=== PATIENT | female | born 2000 | race Caucasian/White ===

== ENCOUNTER 2022-02-18 00:26 | Emergency (ER) | payer MEDICAID, SELFPAY ==
[2022-02-18 00:27] VITALS: BP 119/67; PULSE 90; RESP 18; TEMP 37.1; O2SAT 96; BMI 34.2
--- NOTE | 2022-02-18 00:40 | EDS_ITS ---
HPI HPI - GI History of Present Illness Chief Complaint: Abd Pain Informant: patient and family Narrative Narrative: Patient presents with abdominal pain now with nausea vomiting and some mild diarrhea. No blood in the vomitus or diarrhea that was seen. She states she started approximately 24 hours ago with abdominal pain. She works night and she is not exactly sure when it started. She had eaten a hot pocket prior to this. The pain has been in the right upper quadrant and has stayed there. She did sleep after work. Today she got up had a peanut butter sandwich. After that she developed some nausea and vomiting. She has vomited about 3 times. She also had some soft bowel movements. No fevers or chills. She still has pain in the right upper quadrant. No chest pain or trouble breathing. No urinary symptoms. Last menstrual cycle was in December but she had been on one control, stopped it, and then restarted another 1 about a month ago. Patient also does report a history of ulcerative colitis. But she was diagnosed by scope in 2019. She was put on some medication but was overdosed on it. She has been off meds since. She does not see anyone for this. She states her ulcerative colitis pain is normally lower abdominal cramping. It sounds like she has never had bloody stools. No surgeries at all in the abdomen. Nothing consistently makes the symptoms better or worse but it does seem like they might be exacerbated with trying to take food or water. There is also a prominent family history of cholecystectomy at a younger age. Her mother had gallbladder out approximately is a heath in high school. PFSH PFS Medical History no medical history Home Medications hydrocodone-acetaminophen 5-325mg 5mg-325mg 1 tab PO Q6H PRN pain 3 days #10 tabs 02/18/22 [Rx Last Taken Unknown] levofloxacin 250 mg tablet 250 mg PO DAILY #5 tabs 02/18/22 [Rx Last Taken Unknown] ondansetron 4 mg disintegrating tablet 4 mg PO Q8H PRN nausea and vomiting #10 tabs 02/18/22 [Rx Last Taken Unknown] sulfasalazine 500 mg tablet,delayed release 1 g PO TID #90 tabs 02/18/22 [Rx Last Taken Unknown] Allergy/AdvReac Type Severity Reaction Status Date / Time amoxicillin AdvReac Other Verified 02/18/22 00:27 Surgical History no surgical history Social History Smoking Status: Never smoker ROS ROS ED Constitutional Constitutional ED: Denies chills or fever(s) ENT ENT ED: Denies rhinorrhea Cardiovascular Cardiovascular: Denies chest pain, palpitations or racing heartbeat Respiratory/Chest Respiratory/Chest: Denies cough, dyspnea or sputum Gastrointestinal Gastrointestinal: Reports abdominal pain, diarrhea and vomiting; Denies constipation or nausea Genitourinary Genitourinary ED: Denies dysuria, hematuria or urinary frequency Musculoskeletal Musculoskeletal: Denies arthralgias or myalgias Integumentary Denies rash Neurologic Neurologic: Denies headache(s) Endocrine Endocrinology: Denies polydipsia or polyuria Hematologic/Lymphatic Hematologic/Lymphatic: Denies easy bleeding or easy bruising Allergic/Immunologic Allergic/Immunologic ED: Denies urticaria EXAM Physical Exam Const Vital Signs: 02/18/22 00:27 Temperature 98.8 F Temperature Source Oral Pulse Rate 90 Respiratory Rate 18 Blood Pressure 119/67 Blood Pressure Mean 84 Pulse Ox 96 Oxygen Delivery Method Room Air Positive well nourished, well developed and obese Constitutional Narrative: Patient does look mildly uncomfortable General Appearance ED: well developed Nutritional Appearance: obese HEENT Reports dry mucous membranes HEENT Narrative: Mildly dry mucous membrane Mouth ED: Yes dry mucous membranes Mouth: dry mucous membranes Eyes General Eye ED: Negative for scleral icterus Neck supple Resp normal respiratory effort and clear to auscultation bilaterally Resp Narrative: No pain with deep breath. Auscultation: Negative for rales, rhonchi or wheezes Cardio regular rate, regular rhythm and no murmurs GI non-distended and no masses GI Narrative: Abdomen does seem to have a positive normal bowel sounds. Is not distended. But she does have tenderness toward the right upper quadrant. Rest of the abdomen is really relatively benign. Palpation: soft and tender; Negative for guarding, rigid or rebound tenderness present Back/Spine Back/Spine Narrative: Mild right CVA tenderness. Extremity General Extremety ED: Negative for edema or tenderness General Extremity: Negative for edema Neuro Sensorium / Orientation: alert Psych mental status grossly normal Skin no wounds Skin Narrative: No vesicles or rash in the area of pain. MDM MDM MDM Narrative Medical decision making narrative: Patient's blood work showed normal white count. Hemoglobin is a little bit low but there is been no reported blood loss or blood in the stool. I do not have old for comparison. Electrolytes are overall unremarkable. Liver function test and lipase is unremarkable. is negative. However, the patient's urine came back strongly concerning for UTI. She states she is not really having any dysuria although occasionally that occurs but its not new or acutely changing. But the patient does have some increased pain toward the right upper quadrant and the right flank and mild right CVA tenderness. With urine being cloudy, positive nitrites, positive leukocyte Es trace, and 50-100 white cells I will treat this as UTI. ?? She has 3+ bacteria. There are some increased epithelial cells but her urine is also strongly positive for UTI.It may be that she has mild colitis all the time with her history of untreated UC. Her acute symptoms may be related to the urine infection. I will treat this at least pending culture. She has penicillin allergy. We will use Levaquin at the reduced UTI dosage. We explained that the patient has recurrent vomiting, pain, fevers inability keep meds down she may need to return. Lab Data Attestation: I reviewed the patient's lab results. Labs: Laboratory Results - last 24 hr 02/18/22 02/18/22 02/18/22 00:50 00:50 00:50 WBC 10.1 RBC 3.83 L Hgb 9.7 L Hct 31.5 L MCV 82.2 MCH 25.3 L MCHC 30.8 L RDW Std Deviation 45.1 H RDW Coeff of Michelle 15.1 H Plt Count 322 MPV 10.1 Immature Gran % (Auto) 0.200 Neut % (Auto) 67.8 Lymph % (Auto) 24.3 [place]ball % (Auto) 6.2 Eos % (Auto) 1.0 Baso % (Auto) 0.5 Absolute Neuts (auto) 6.9 Absolute Lymphs (auto) 2.46 Nucleated RBC % 0 Sodium 141 Potassium 3.8 Chloride 110 H Carbon Dioxide 23.0 Anion Gap 8 BUN 12 Creatinine 0.84 Estim Creat Clear Calc 83.79 Est GFR (MDRD) Af Amer 110 Est GFR (MDRD) Non-Af 91 BUN/Creatinine Ratio 14.3 Glucose 83 Calcium 9.0 Total Bilirubin 0.30 AST 9 L ALT 13 Alkaline Phosphatase 77 Total Protein 7.6 Albumin 3.2 Globulin 4.4 H Albumin/Globulin Ratio 0.7 L Lipase 62 L Serum , Qual NEGATIVE Urine Color Urine Clarity Urine pH Ur Specific [place] Urine Protein Urine Glucose (UA) Urine Ketones Urine Occult Blood Urine Nitrite Urine Bilirubin Urine Urobilinogen Ur Leukocyte Esterase Urine RBC Urine WBC Ur Squamous Epith Cells Urine Bacteria Urine Mucus 02/18/22 01:43 WBC RBC Hgb Hct MCV MCH MCHC RDW Std Deviation RDW Coeff of Michelle Plt Count MPV Immature Gran % (Auto) Neut % (Auto) Lymph % (Auto) [place]ball % (Auto) Eos % (Auto) Baso % (Auto) Absolute Neuts (auto) Absolute Lymphs (auto) Nucleated RBC % Sodium Potassium Chloride Carbon Dioxide Anion Gap BUN Creatinine Estim Creat Clear Calc Est GFR (MDRD) Af Amer Est GFR (MDRD) Non-Af BUN/Creatinine Ratio Glucose Calcium Total Bilirubin AST ALT Alkaline Phosphatase Total Protein Albumin Globulin Albumin/Globulin Ratio Lipase Serum , Qual Urine Color Yellow Urine Clarity Sl. Cloudy Urine pH 5.0 Ur Specific [place] 1.015 Urine Protein 15 H Urine Glucose (UA) Normal Urine Ketones 15 H Urine Occult Blood 10 H Urine Nitrite Positive H Urine Bilirubin Negative Urine Urobilinogen Normal Ur Leukocyte Esterase 500 H Urine RBC 0-5 SEEN Urine WBC 50-100 SEEN Ur Squamous Epith Cells 10-25 SEEN Urine Bacteria 3+ Urine Mucus 4+ Radiography Diagnostic Testing: Clinical Impression(s) from Imaging Studies Abdomen/Pelvis CT 02/18/22 01:06 IMPRESSION: Mild generalized colitis with mild reactive adenopathy. Electronically Signed: Osmar Hernandez MD at 2:04 EST Reading Location ID and State: [facility] / [place] Tel , Service support , CT scan showed some mild generalized colitis. No other acute process. Discharge Plan Triage Chief Complaint: Abd Pain Other Complaint: Nausea/Vomiting/Diarrhea ED Provider: Nitish Dey Dx/Rx/DC Orders Clinical Impression: Ulcerative colitis, Abdominal pain, Nausea & vomiting Instructions: ED Ulcerative Colitis Prescriptions: New sulfasalazine 500 mg tablet,delayed release (DR/EC) 1 g PO TID Qty: 90 0RF hydrocodone-acetaminophen 5-325 mg tablet 1 tab PO Q6H PRN (Reason: pain) 3 Days Qty: 10 0RF ondansetron 4 mg tablet,disintegrating 4 mg PO Q8H PRN (Reason: nausea and vomiting) Qty: 10 0RF levofloxacin 250 mg tablet 250 mg PO DAILY Qty: 5 0RF Primary Care Provider: Care Physician,No Primary Referrals: Friend,Basil, [Med Staff - Active Staff] - 3-5 Days NOT,DEFINED [Non-Staff] - Disposition Disposition: Home, Self Care
[2022-02-18] MEDS: Morphine 4 MG/ML Syringe IV ×2 (00:46→02:33)
[2022-02-18] MEDS: Ondansetron 4 MG/2 ML Vial IV (00:46)
[2022-02-18] MEDS: 0.9% Normal Saline 1,000 ML 1000 ML IV (00:46)
[2022-02-18 00:55] LABS: Absolute Lymphocyte Count 2.46 X10^3/uL (0.83-4.51); Absolute Neutrophil Count 6.9 X10^3/uL (2.0-7.7); Basophil# 0.05 X10^3/uL; Basophil% 0.5 % (0-1); Hematocrit 31.5 % (37-47); Hemoglobin 9.7 g/dL (12.0-15.0); Lymphocyte # 2.46 X10^3/ul (0.83-4.51); Lymphocyte % 24.3 % (19-41); Mean Corp Hgb Conc 30.8 g/dL (32-36); Mean Corpuscular Hgb 25.3 pg (27.0-32.0); Mean Corpuscular Volume 82.2 fL (81-99); Mean Platelet Vol. 10.1 fl (6.2-12.0); Monocyte# 0.63 X10^3/uL; Monocyte% 6.2 % (0-10); NRBC Flagged by Analyzer 0 % (0-5); Neutrophil # 6.86 X10^3/uL (2.7-7.7); Neutrophil % 67.8 % (47-70); Platelet Count 322 K/mm3 (150-450); RBC Distribution Width CV 15.1 % (11.6-14.6); RBC Distribution Width SD 45.1 fl (35.1-43.9); Red Blood Count 3.83 M/mm3 (4.2-5.4); White Blood Count 10.1 K/mm3 (4.4-11.0)
[2022-02-18 01:05] LABS: Internal QC Validated? YES +Cl - CLEAR BKGD; Pregnancy, Serum, hCG Quali. NEGATIVE Negative
--- NOTE | 2022-02-18 01:06 | CT_ITS ---
INDICATION: RUQ pain, nausea, vomiting, mild diarrhea EXAMINATION: CT Abdomen And Pelvis W/ Contrast Injection TECHNIQUE: Helically acquired images were obtained of the abdomen and pelvis following IV contrast. 2-D reconstructions reviewed. A radiation dose optimization technique was used for this scan. IV Contrast dosage and agent: 100 mL [id number] Oral contrast: None. COMPARISON: None. FINDINGS: LOWER CHEST: No acute findings within the imaged lung bases. Heart size within normal limits. LIVER: Homogeneous. No concerning lesion. GALLBLADDER AND BILIARY TREE: No calcified gallstones identified. No gallbladder wall edema demonstrated. No significant biliary ductal dilation. PANCREAS: No discrete mass or peripancreatic edema. SPLEEN: Normal size without focal cystic or solid mass. ADRENAL GLANDS: Unremarkable. KIDNEYS AND URETERS: Normal renal size and position. No hydronephrosis. No concerning lesion. PERITONEUM: No peritoneal free air or significant free fluid. No other fluid collection. RETROPERITONEUM: No retroperitoneal mass or pathologic fluid collection. BOWEL: Mild generalized colonic wall thickening with multiple slightly enlarged pericolonic and mesenteric lymph nodes. No bowel obstruction. Unremarkable small bowel. Normal appendix medial to the cecum within right upper pelvis. LYMPH NODES: Numerous slightly enlarged mesenteric and pericolonic lymph nodes measuring up to 10 mm short axis diameter. VESSELS: No acute findings. No abdominal aortic aneurysm. URINARY BLADDER: Unremarkable as visualized. REPRODUCTIVE ORGANS: No pelvic masses. Vaginal diaphragm device in place. ABDOMINAL WALL: No acute findings or significant hernia defect. BONES: Intact with no suspicious osseous lesion. CT/Abdomen/Pelvis W IV Cont ONLY IMPRESSION: Mild generalized colitis with mild reactive adenopathy. Electronically Signed: Osmar Hernandez MD at 2:04 EST ,
[2022-02-18 01:13] LABS: ALB/GLOB Ratio 0.7 RATIO (0.9-2.4); AST(SGOT) 9 U/L (15-37); Alanine Aminotransfer ALT/SGPT 13 U/L (13-56); Albumin, Serum 3.2 g/dL (3.2-5.0); Alkaline Phosphatase 77 U/L (45-117); Anion Gap 8 (5-15); BUN 12 mg/dL (7-18); BUN/Creat Ratio 14.3 RATIO (10-20); Chloride 110 mmol/L (98-107); Creatinine, Serum 0.84 mg/dL (0.55-1.02); EST Glomerular Filtration Rate 91 mL/min (>60); Est Glom Filt Rate - Afr Amer 110 mL/min (>60); Estimated Creatinine Clearance 83.79 ml/min; Globulin 4.4 g/dL (2.2-4.2); Glucose 83 mg/dL (74-106); Lipase 62 U/L (73-393); Potassium 3.8 mmol/L (3.5-5.1); Protein, Total 7.6 g/dL (6.4-8.2); Sodium Level 141 mmol/L (136-145)
[2022-02-18 01:48] LABS: Color, Urine Yellow (Yellow); Glucose, Dipstick Normal (Normal); Ketone-Dipstick 15 mg/dl (Negative); Leukocyte Esterase-Dipstick 500 /ul (Negative); Nitrite-Dipstick Positive (Negative); Occult Blood-Urine 10 /ul (Negative); Protein-Dipstick 15 mg/dl (Negative); Specific Gravity, Urine 1.015 (1.002-1.030); Urine Bilirubin Dipstick Negative (Negative); Urine Clarity Sl. Cloudy (Clear); Urine Urobilinogen Normal (Normal)
[2022-02-18 02:12] LABS: Bacteria 3+ /hpf (None Seen); Mucous, Urine 4+ /hpf (<or=2+); Red Blood Cells-Urine 0-5 SEEN /hpf (0-5); Squamous Epithelial Cells - UA 10-25 SEEN /hpf (5-10); White Blood Cells 50-100 SEEN /hpf (0-5)
[2022-02-18] MEDS: proMETHazine 25 MG/ML Syringe 12.5 MG IM (02:33)
[2022-02-18] MEDS: levoFLOXacin IV 500 MG/100 ML BAG 100 MG IV (02:34)
[2022-02-18 03:15] VITALS: BP 119/67; PULSE 90; RESP 18; TEMP 37; O2SAT 96
== END 2022-02-18 03:46 | disposition home or self-care (01) ==
PROVIDERS: Emergency Provider Emergency Medicine; Visit Provider Emergency Medicine
DX: K51.90 Ulcerative colitis, unspecified, without complications (principal); N39.0 Urinary tract infection, site not specified; R11.2 Nausea with vomiting, unspecified; R19.7 Diarrhea, unspecified; E66.9 Obesity, unspecified
CPT/HCPCS: 74177; 80053; 81001; 83690; 84703; 85025; 96361; 96365; 96372; 96375; 96376; 99283; J7030; Q9967; A4216; J2405